=== PATIENT | female | born 1990 | race Caucasian/White ===

== ENCOUNTER → 2020-03-18 | Outpatient (CLI) | payer OTHER ==
[~2020-03-18] MED LIST: CELEBREX100 MG; FOLIC ACID0.4 MG; PROVERA2.5 MG
== END | disposition home or self-care (01) ==
LOC: MRI 07:45
PROVIDERS: ATTEND Orthopaedic Surgery
DX: M25.551 Pain in right hip (principal); M25.512 Pain in left shoulder; M75.121 Complete rotator cuff tear or rupture of right shoulder, not specified as traumatic; M75.122 Complete rotator cuff tear or rupture of left shoulder, not specified as traumatic; M25.511 Pain in right shoulder
CPT/HCPCS: 73721